=== PATIENT | female | born 1970 | race Two or more races ===

== ENCOUNTER 2016-09-09 09:32 | Emergency (ER) | payer MEDICAID, OTHER ==
[2016-09-09 09:51] VITALS: BP 117/70; PULSE 73; RESP 16; TEMP 97.9; O2SAT 96
--- NOTE | 2016-09-09 09:54 | UCPHY ---
H & P Time Seen by Provider: 09/09/16 09:38 Patient Type: Established HPI/ROS: CHIEF COMPLAINT: Dental pain, right-sided facial swelling HISTORY OF PRESENT ILLNESS: The patient presents to the emergency department with complaints of right upper molar pain which then developed into some right- sided facial swelling. The patient has no history of fever. She denies trismus or odynophagia. The patient denies significant past medical history is including diabetes or immunosuppressive disorders. The patient is not been on recent antibiotics. She is scheduled to see her dentist tomorrow. The patient has taken some Percocet at home without improvement of her symptoms. REVIEW OF SYSTEMS: A comprehensive 10 point review of systems is otherwise negative aside from elements mentioned in the history of present illness. Past Medical/Surgical History: Past medical history: Noncontributory Smoking Status: Current every day smoker Physical Exam: General Appearance: Alert, no distress Eyes: Pupils equal and round no pallor or injection ENT, Mouth: Tenderness to palpation and mild soft tissue swelling noted in the soft tissues over the right anterior maxillary wall, no clear evidence of parotid gland involvement, inspection of the oropharynx demonstrates no dental fracture or intraoral abscess Respiratory: There are no retractions, lungs are clear to auscultation Cardiovascular: Regular rate and rhythm Gastrointestinal: Abdomen is soft and nontender, no masses, bowel sounds normal Neurological: A&O, normal motor function, normal sensory exam, normal cranial nerves Skin: Warm and dry, no rashes Musculoskeletal: Neck is supple nontender Extremities: symmetrical, full range of motion Constitutional: Initial Vital Signs Temperature (C) 36.6 C 09/09/16 09:43 Heart Rate 73 09/09/16 09:43 Respiratory Rate 16 09/09/16 09:43 Blood Pressure 117/70 09/09/16 09:43 O2 Sat (%) 96 09/09/16 09:43 O2 Delivery Mode Room Air Allergies/Adverse Reactions: acetaminophen [From Vicodin] Allergy (Intermediate, Verified 09/09/16 09:45) Vomiting hydrocodone bitartrate [From Vicodin] Allergy (Intermediate, Verified 09/09/16 09:46) Vomiting Sulfa (Sulfonamide Antibiotics) Allergy (Unknown, Verified 09/09/16 09:45) Unknown Home Medications: Medication Instructions Recorded Albuterol 09/09/16 Ambien 09/09/16 Amoxicillin/Clavulanate Pot 875 mg PO BID #20 tab 09/09/16 [Augmentin 875 mg tablet] Flexeril 09/09/16 Morphine Sulfate ER 09/09/16 Percocet 5-325 mg Tablet 09/09/16 oxyCODONE IR [Oxycodone Ir (*)] 5 - 10 mg PO Q6 PRN #20 tab 09/09/16 Medical Decision Making ED Course/Re-evaluation: The patient presents to the urgent care with some mild right facial swelling either secondary to an odontogenic infection versus mild parotid gland inflammation. The patient is scheduled to see her dentist tomorrow. At this point time she will be started on Augmentin given a prescription for oxycodone. She is advised to return to the ED or urgent care for increased pain, swelling , fever, vision changes or other acute concerns. Patient has no evidence of an obvious facial abscess. She has no evidence of an obvious facial cellulitis. The patient is nontoxic and well-appearing without evidence of any cranial nerve 7 involvement. Differential Diagnosis: Differential diagnosis considered includes facial cellulitis, facial abscess, odontogenic abscess, parotid gland infection Departure - Departure Disposition: Home, Routine, Self-Care Clinical Impression: Dental abscess Condition: Good Instructions: Dental Abscess (ED) Additional Instructions: 1. Please take antibiotics as directed for next 10 days. 2. Oxycodone as needed for pain. 3. Please follow-up with your dentist tomorrow for a re-evaluation. 4. Please return to the ED for markedly worsening pain, swelling, vision changes , redness, high fever, difficulty swallowing or other concerns. Referrals: JHONATAN,UNKNOWN [Other] - As per Instructions - PQRS PQRS Measurement: Not applicable
== END 2016-09-09 09:57 | disposition home or self-care (01) ==
LOC: CED 09:32
DX: K04.7 Periapical abscess without sinus (principal); F17.200 Nicotine dependence, unspecified, uncomplicated
CPT/HCPCS: 99214-PO; G0463-PO